=== PATIENT | female | born 1995 | race American Indian/Alaskan Native ===

== ENCOUNTER 2022-03-26 21:46 | Emergency (ER) | payer MEDICAID ==
[2022-03-26] MEDS ORDERED: Lactated Ringers 1,000 ML IV SCH (22:30)
[2022-03-26 22:53] LABS: INFLUENZA A NAA NEGATIVE (NEGATIVE); INFLUENZA B NAA NEGATIVE (NEGATIVE); RESPIRATORY SYNCYTIAL VIR NAA NEGATIVE (NEGATIVE)
[2022-03-26 23:23] LABS: POTASSIUM,K 3.7 mmol/L (3.5-5.1)
[2022-03-26] MEDS ORDERED: Ibuprofen 400 MG Tab PO ONE (23:49)
[2022-03-26] MEDS ORDERED: Prochlorperazine 10 MG in Sodium Chloride 0.9% 50 ML IV ONE (23:49)
[2022-03-26] MEDS ORDERED: Acetaminophen 325 MG Tab PO ONE (23:49)
[2022-03-26] MEDS ORDERED: Prochlorperazine 10 MG/2 ML SDV ONE (23:56)
== END 2022-03-27 01:12 | disposition home or self-care (01) ==
LOC: MW.ED 21:46
DX: R51.9 Headache, unspecified (principal); Z88.5 Allergy status to narcotic agent; Z20.822 Contact with and (suspected) exposure to COVID-19
CPT/HCPCS: 36415; 80053; 81001; 81025; 85025; 87086; 87634; 87635; 93005; 96361; 96365; 99284; A9270; J0780; J3490; J7120; U0002

== ENCOUNTER 2022-06-01 15:30 | Emergency (ER) | payer SELFPAY ==
[2022-06-01 16:47] LABS: BLOOD UREA NITROGEN,BUN 8 mg/dL (7.0-18.0); CARBON DIOXIDE,CO2 22.6 mmol/L (21.0-32.0); CHLORIDE,CL 106 mmol/L (98-107); GLUCOSE RANDOM 137 mg/dL (74-106); LIPASE 69 U/L (73-393); POTASSIUM,K 3.9 mmol/L (3.5-5.1); SODIUM,NA 139 mmol/L (136-145)
[2022-06-01 16:51] LABS: ESTIMATED GFR 91 mL/min (>60)
[2022-06-01] MEDS ORDERED: Ketorolac 60 MG/2 ML SDV IM ONE (17:06)
[2022-06-01] MEDS ORDERED: Ondansetron 4 MG Tab.DIS PO ONE (17:06)
== END 2022-06-01 17:53 | disposition home or self-care (01) ==
LOC: MW.ED 15:30
DX: G43.909 Migraine, unspecified, not intractable, without status migrainosus (principal); Z88.5 Allergy status to narcotic agent
CPT/HCPCS: 36415; 80053; 83690; 84703; 85025; 96372; 99284; A9270; J1885